=== PATIENT | male | born 1970 | race Caucasian/White ===

== ENCOUNTER 2018-12-19 16:20 | Emergency (ER) | payer OTHER ==
[~2018-12-19] VITALS: Ht 170.2 cm; Wt 72.6 kg
[2018-12-20] MEDS ORDERED: ZOFRAN8 MG PO (07:32)
[2018-12-20] MEDS ORDERED: ADALAT CC30 MG PO (07:32)
[2018-12-20] MEDS ORDERED: PEPCID40 MG PO (07:32)
== END 2018-12-20 07:56 | disposition home or self-care (01) ==
LOC: ER 16:20
DX: B34.9 Viral infection, unspecified (principal)